=== PATIENT | male | born 1980 | race African-American/Black ===

== ENCOUNTER 2021-04-06 20:41 | Emergency (ER) | payer SELFPAY ==
[~2021-04-06] VITALS: Ht 190.5 cm; Wt 170.1 kg
[2021-04-06] MEDS ORDERED: CEFDINIR300 MG PO (21:39)
== END 2021-04-06 22:00 | disposition home or self-care (01) ==
LOC: FSED 21:59
DX: R30.0 Dysuria (principal); N30.00 Acute cystitis without hematuria; R10.30 Lower abdominal pain, unspecified
CPT/HCPCS: 81003; 99282